=== PATIENT | female | born 1940 | race Hispanic/Latino ===

== ENCOUNTER 2018-03-30 23:41 | Emergency (ER) | payer MEDICARE ==
[~2018-03-30 23:41] MED LIST: CALC625T PO; CETI10TA86 PO; FLAX1000 PO; LACT1CAP78 PO; LISI10TA7 PO; OMEP40CA37 PO; ROSU10TA27 PO; SITA100T12 PO; VITA1CAP85 PO
[2018-03-30] MEDS ORDERED: LIDOCAINE/PRILOCAINE CREAM 5GM TUBE TP ONE (23:56)
[2018-03-31] MEDS ORDERED: TETANUS/DIPHTHERIA TOXOID [ADULT] 0.5 ML VIAL IM ONE (00:29)
== END 2018-03-31 01:11 | disposition home or self-care (01) ==
LOC: EDH 23:41
DX: S60.473A Other superficial bite of left middle finger, initial encounter (principal); S61.213A Laceration without foreign body of left middle finger without damage to nail, initial encounter; E11.9 Type 2 diabetes mellitus without complications; W54.0XXA Bitten by dog, initial encounter; Y93.89 Activity, other specified; Y92.098 Other place in other non-institutional residence as the place of occurrence of the external cause; Y99.8 Other external cause status
CPT/HCPCS: 73130; 90471; 90714; 99284; J3490